=== PATIENT | male | born 1950 | race Caucasian/White ===

== ENCOUNTER 2021-02-20 19:09 | Emergency (ER) | payer BC, SELFPAY ==
[2021-02-20 19:10] VITALS: BP 117/74; PULSE 81; RESP 16; TEMP 36.3; O2SAT 97; BMI 25.8
--- NOTE | 2021-02-20 19:48 | ED.VIS.LOWEX ---
HPI History of Present Illness Chief Complaint: Lower Extremity Injury Informant: patient and spouse/S.O. Narrative Narrative: Patient presents with left alex pain after kicking a solid object by accident. He is able to bear weight but it is painful. This just happened this afternoon. Of note, he is on Brilinta. No other injury or complaint. No numbness tingling or weakness. PFSH PFSH Home Medications atorvastatin 02/20/21 [History Last Taken Unknown] lisinopril 02/20/21 [History Last Taken Unknown] metoprolol succinate 02/20/21 [History Last Taken Unknown] Allergy/AdvReac Type Severity Reaction Status Date / Time No Known Allergies Allergy Verified 02/20/21 19:10 Surgical History (Updated 02/20/21 @ 20:03 by Alma Neumann) H/O heart artery stent Social History Smoking Status: Never smoker ROS ROS ED Constitutional Constitutional ED: Denies chills or fever(s) Cardiovascular Cardiovascular: Denies chest pain or palpitations Gastrointestinal Gastrointestinal: Denies nausea or vomiting Musculoskeletal Musculoskeletal: Reports other Details: See history of present illness. ; Denies back pain or neck pain Integumentary Reports other Details: Patient does have contusion and some mild swelling that is developed medial aspect of the left alex ; Denies rash Neurologic Neurologic: Denies paresthesias or weakness Hematologic/Lymphatic Hematologic/Lymphatic: Reports easy bleeding and easy bruising EXAM Physical Exam Const Vital Signs: 02/20/21 19:10 Temperature 97.4 F L Temperature Source Temporal Pulse Rate 81 Respiratory Rate 16 Blood Pressure 117/74 Blood Pressure Mean 88 Pulse Ox 97 Oxygen Delivery Method Room Air Positive well nourished and well developed General Appearance ED: well developed and NAD HEENT normocephalic and atraumatic Resp normal respiratory effort Extremity Extremity Narrative: Patient has an area of contusion to the mid left alex mostly medially. Mild tenderness locally. Calf itself is not swollen. There is visible contusion that has developed. No laceration or break in the skin. Distal pulses are intact. No gross deformity. Neuro oriented x3 and no sensory deficits noted Sensorium / Orientation: alert Motor Exam: strength 5/5 throughout Skin Skin Narrative: Contusion to left alex as above. MDM MDM MDM Narrative Medical decision making narrative: X-ray shows no acute process. This was looked at by me and read by radiology. There was some mild soft tissue swelling but no acute fracture. Patient's recheck. He really does not have an increase in swelling. I explained that this is likely due to his Brilinta. He should rest ice the area. If he gets significantly more swelling pain numbness tingling shortness of breath he should return. This should resolve over the next few weeks. Radiography Diagnostic Testing: Radiology Impression Tibia/Fibula X-Ray 02/20/21 19:52 IMPRESSION: Mild soft tissue swelling Electronically Signed: Faustino Mancilla MD at 21:04 EDT , Service support , Discharge Plan Triage Chief Complaint: Lower Extremity Injury ED Provider: Ethan Leavitt Dx/Rx/DC Orders Clinical Impression: Contusion of left lower leg, Coagulopathy Instructions: Bruises (Contusions) Prescriptions: No Action atorvastatin RF: 0 lisinopril RF: 0 metoprolol succinate RF: 0 Primary Care Provider: Sola Gabriel,Out of Referrals: Sola Gabriel,Out of [Primary Care Provider] - Activity Restrictions/Additional Instructions: Follow-up with your doctor Disposition Disposition: Home, Self Care
--- NOTE | 2021-02-20 19:52 | RAD_ITS ---
STUDY: X-RAY - LEFT TIBIA AND FIBULA REASON FOR EXAM: Male, 70 years old. PAIN WITH BRUISING AND SWELLING AFTER HITTING LEG ON PICNIC TABLE- LOCATION MARKED ON AP IMAGE TECHNIQUE: 2 view(s) of the tibia and fibula were obtained. COMPARISON: None. FINDINGS: Normal visualized tibia. Normal visualized fibula. There is no demonstrated acute fracture. Mild soft tissue swelling is seen on the medial side of the lower leg. RAD/Tibia & Fibula 2 Views IMPRESSION: Mild soft tissue swelling Electronically Signed: Faustino Mancilla MD at 21:04 EDT , Service support ,
== END 2021-02-20 21:43 | disposition home or self-care (01) ==
PROVIDERS: Emergency Provider Emergency Medicine
DX: S80.12XA Contusion of left lower leg, initial encounter (principal); D68.9 Coagulation defect, unspecified; W22.09XA Striking against other stationary object, initial encounter
CPT/HCPCS: 73590; 99282